=== PATIENT | male | born 1950 | race Caucasian/White ===

== ENCOUNTER 2017-11-03 14:37 | Emergency (ER) | payer OTHER ==
[~2017-11-03] VITALS: Ht 180.3 cm; Wt 106.8 kg
[2017-11-03 16:16] VITALS: BP 140/76
--- OUTSIDE RECORDS SUMMARY | 2018-02-12 14:23 | XMS REPORT ---
Author Author [facility] Address Unknown Phone Unavailable Care Team Providers Care Shoder Filler Name Role Phone FATUMA, AGNES Unavailable Unavailable Payers Payer Name Policy Type Policy Number Effective Date Expiration Date Problems This patient has no known problems. Allergies, Adverse Reactions, Alerts Allergy Name Allergy Type Status Severity Reaction(s) Onset Date Inactive Date Treating Clinician Comments No Known Allergies DA Active U 2018-01-09 00:00:00 Medications This patient has no known medications. Results Test Description Test Time Test Comments Text Results Atomic Results Result Comments CLOSTRIDIUM DIFFICILE TOXIN PCR 2016-11-21 12:14:00 CLOSTRIDIUM DIFFICILE TOXIN, PCR ([address]) (test pqzg=3655) Not Detected Not Detected This qualitative real-time polymerase chain reaction assay detects the tcdB gene , encoded on the C.difficile pathogenicity locus (PaLoc). The product of tcdB, toxin B, is a cytotoxin essential for causing C.difficile-associated disease ( CDAD) and is found in virtually all toxigenic C.difficile.This assay is performed for patients suspected of having either community-acquired or nosocomial CDAD. Accordingly, only symptomatic patients should be tested and formed stools will be rejected unless ileus is present (i.e., specified when ordering). Patients may be colonized with toxigenic C.difficile strains not causing active disease; therefore, clinical correlation is needed when deciding how to manage patients with a positive test result.The assay has not been validated as a test of cure as amplifiable nucleic acid may persist after effective treatment; therefore, follow-up testing of a positive result is not recommended.BASIC METABOLIC [id number] 05:23:00* Test Item Value Reference Range Comments SODIUM (BEAKER) (test lxul=512) 142 meq/L 136-145 POTASSIUM (BEAKER) (test tqar=870) 4.4 meq/L 3.5-5.1 CHLORIDE (BEAKER) (test afid=261) 113 meq/L 98-107 CO2 (BEAKER) (test tqei=949) 19 meq/L 22-29 BLOOD UREA NITROGEN (BEAKER) (test vrsp=917) 25 mg/dL 7-21 CREATININE (BEAKER) (test jhtd=235) 0.93 mg/dL 0.57-1.25 GLUCOSE RANDOM (BEAKER) (test lvvd=600) 123 mg/dL 70-105 CALCIUM (BEAKER) (test skcj=120) 8.7 mg/dL 8.4-10.2 EGFR (BEAKER) (test wkyg=8425) 82 mL/min/1.73 sq m ESTIMATED GFR IS NOT ACCURATE CREATININE CLEARANCE IN PREDICTING GLOMERULAR FILTRATION RATE. ESTIMATED GFR IS NOT APPLICABLE FOR DIALYSIS PATIENTS. CBC W/PLT COUNT & AUTO [id number] 05:17:00* Test Item Value Reference Range Comments WHITE BLOOD CELL COUNT (BEAKER) (test bkib=069) 7.6 K/ L 4.0-10.0 RED BLOOD CELL COUNT (BEAKER) (test jsdd=511) 5.23 M/ L 4.20-5.80 HEMOGLOBIN (BEAKER) (test ubyr=513) 15.4 GM/DL 13.0-16.8 HEMATOCRIT (BEAKER) (test doeg=316) 48.0 % 40.0-50.0 MEAN CORPUSCULAR VOLUME (BEAKER) (test ciao=867) 91.7 fL 82.0-98.0 MEAN CORPUSCULAR HEMOGLOBIN (BEAKER) (test nsiv=099) 29.4 pg 27.0-33.0 MEAN CORPUSCULAR HEMOGLOBIN CONC (BEAKER) (test rkjw=274) 32.0 GM/DL 32.0- 36.0 RED CELL DISTRIBUTION WIDTH (BEAKER) (test liuj=126) 14.3 % 10.3-14.2 PLATELET COUNT (BEAKER) (test ovrq=040) 172 K/CU MM 150-430 MEAN PLATELET VOLUME (BEAKER) (test zrwl=493) 7.4 fL 6.5-10.5 NUCLEATED RED BLOOD CELLS (BEAKER) (test uuee=639) 0 /100 WBC 0-0 NEUTROPHILS RELATIVE PERCENT (BEAKER) (test rfhw=555) 58 % LYMPHOCYTES RELATIVE PERCENT (BEAKER) (test mcvx=049) 27 % MONOCYTES RELATIVE PERCENT (BEAKER) (test pssp=160) 10 % EOSINOPHILS RELATIVE PERCENT (BEAKER) (test upml=203) 4 % BASOPHILS RELATIVE PERCENT (BEAKER) (test acni=893) 1 % NEUTROPHILS ABSOLUTE COUNT (BEAKER) (test hqcc=191) 4.44 K/ L 1.80-8.00 LYMPHOCYTES ABSOLUTE COUNT (BEAKER) (test mkoa=081) 2.03 K/ L 1.48-4.50 MONOCYTES ABSOLUTE COUNT (BEAKER) (test zxts=483) 0.79 K/ L 0.00-1.30 EOSINOPHILS ABSOLUTE COUNT (BEAKER) (test lovz=316) 0.32 K/ L 0.00-0.50 BASOPHILS ABSOLUTE COUNT (BEAKER) (test ukuw=799) 0.04 K/ L 0.00-0.20 0.00TROPONIN [id number] 01:12:00* Test Item Value Reference Range Comments TROPONIN I (BEAKER) (test pscf=559) < ng/mL 0.00-0.03 Effective 03/30/2014: Reference Range ChangeNew: 0.00-0.03 Previous 0.00- 0.15Troponin I (TnI) levels must be interpreted in the context of the presenting symptoms and the clinical findings. Elevated TnI levels indicate myocardial damage, but are not specific for ischemic heart disease. Elevated TnI levels are seen in patients with other cardiac conditions (including myocarditis and congestive heart failure), and slight TnI elevations occur in patients with other conditions, including sepsis, renal failure, acidosis, acute neurological disease, and persistent tachyarrhythmia.BASIC METABOLIC [id number] 01:04:00* Test Item Value Reference Range Comments SODIUM (BEAKER) (test gnkt=566) 139 meq/L 136-145 POTASSIUM (BEAKER) (test fvtp=705) 4.3 meq/L 3.5-5.1 CHLORIDE (BEAKER) (test hsfe=809) 111 meq/L 98-107 CO2 (BEAKER) (test wnpj=194) 18 meq/L 22-29 BLOOD UREA NITROGEN (BEAKER) (test owgi=670) 26 mg/dL 7-21 CREATININE (BEAKER) (test ztpj=122) 1.04 mg/dL 0.57-1.25 GLUCOSE RANDOM (BEAKER) (test viho=233) 132 mg/dL 70-105 CALCIUM (BEAKER) (test nonw=157) 8.6 mg/dL 8.4-10.2 EGFR (BEAKER) (test nrwl=3343) 72 mL/min/1.73 sq m ESTIMATED GFR IS NOT ACCURATE CREATININE CLEARANCE IN PREDICTING GLOMERULAR FILTRATION RATE. ESTIMATED GFR IS NOT APPLICABLE FOR DIALYSIS PATIENTS. CBC W/PLT COUNT & AUTO [id number] 00:47:00* Test Item Value Reference Range Comments WHITE BLOOD CELL COUNT (BEAKER) (test gqmd=370) 8.6 K/ L 4.0-10.0 RED BLOOD CELL COUNT (BEAKER) (test rhbx=577) 5.26 M/ L 4.20-5.80 HEMOGLOBIN (BEAKER) (test ucvi=200) 15.6 GM/DL 13.0-16.8 HEMATOCRIT (BEAKER) (test waqj=292) 47.8 % 40.0-50.0 MEAN CORPUSCULAR VOLUME (BEAKER) (test kmhc=262) 90.7 fL 82.0-98.0 MEAN CORPUSCULAR HEMOGLOBIN (BEAKER) (test jjgz=836) 29.6 pg 27.0-33.0 MEAN CORPUSCULAR HEMOGLOBIN CONC (BEAKER) (test awli=064) 32.6 GM/DL 32.0- 36.0 RED CELL DISTRIBUTION WIDTH (BEAKER) (test fpne=152) 16.5 % 10.3-14.2 PLATELET COUNT (BEAKER) (test hdzd=444) 177 K/CU MM 150-430 MEAN PLATELET VOLUME (BEAKER) (test kizz=349) 7.6 fL 6.5-10.5 NUCLEATED RED BLOOD CELLS (BEAKER) (test qurb=971) 0 /100 WBC 0-0 NEUTROPHILS RELATIVE PERCENT (BEAKER) (test zikp=911) 60 % LYMPHOCYTES RELATIVE PERCENT (BEAKER) (test rfuj=270) 26 % MONOCYTES RELATIVE PERCENT (BEAKER) (test byxj=834) 9 % EOSINOPHILS RELATIVE PERCENT (BEAKER) (test szya=872) 4 % BASOPHILS RELATIVE PERCENT (BEAKER) (test rjiz=218) 1 % NEUTROPHILS ABSOLUTE COUNT (BEAKER) (test bhpw=566) 5.14 K/ L 1.80-8.00 LYMPHOCYTES ABSOLUTE COUNT (BEAKER) (test gcce=219) 2.24 K/ L 1.48-4.50 MONOCYTES ABSOLUTE COUNT (BEAKER) (test idef=256) 0.77 K/ L 0.00-1.30 EOSINOPHILS ABSOLUTE COUNT (BEAKER) (test avaw=379) 0.38 K/ L 0.00-0.50 BASOPHILS ABSOLUTE COUNT (BEAKER) (test ubcn=885) 0.04 K/ L 0.00-0.20 0.00POCT-GLUCOSE [id number] 21:23:00* Test Item Value Reference Range Comments POC-GLUCOSE METER (BEAKER) (test vkgh=4916) 120 mg/dL 70-110 TESTED AT [facility] [address] [facility] [address] TROPONIN [id number] 18:39:00* Test Item Value Reference Range Comments TROPONIN I (BEAKER) (test iexr=168) < ng/mL 0.00-0.03 Effective 03/30/2014: Reference Range ChangeNew: 0.00-0.03 Previous 0.00- 0.15Troponin I (TnI) levels must be interpreted in the context of the presenting symptoms and the clinical findings. Elevated TnI levels indicate myocardial damage, but are not specific for ischemic heart disease. Elevated TnI levels are seen in patients with other cardiac conditions (including myocarditis and congestive heart failure), and slight TnI elevations occur in patients with other conditions, including sepsis, renal failure, acidosis, acute neurological disease, and persistent tachyarrhythmia.URINALYSIS W/ [id number] 18:36:00* Test Item Value Reference Range Comments COLOR (BEAKER) (test okda=466) Yellow CLARITY (BEAKER) (test pyvj=633) Hazy SPECIFIC GRAVITY UA (BEAKER) (test hesm=280) 1.029 1.001-1.035 PH UA (BEAKER) (test ocju=862) 5.0 5.0-8.0 PROTEIN UA (BEAKER) (test myhl=791) Negative Negative GLUCOSE UA (BEAKER) (test wagm=847) Negative Negative KETONES UA (BEAKER) (test mxnw=451) Negative Negative BILIRUBIN UA (BEAKER) (test hkwi=199) Negative Negative BLOOD UA (BEAKER) (test ovoa=459) Negative Negative NITRITE UA (BEAKER) (test xmai=151) Negative Negative LEUKOCYTE ESTERASE UA (BEAKER) (test wnrm=133) Negative Negative UROBILINOGEN UA (BEAKER) (test tmax=271) 0.2 mg/dL 0.2-1.0 RBC UA (BEAKER) (test wkud=882) 0 /HPF WBC UA (BEAKER) (test cwdf=076) 0 /HPF URIC ACID CRYSTALS (BEAKER) (test rfrg=1163) Occasional SOURCE(BEAKER) (test qxwk=5289) Urine, Clean Catch CREATINE KINASE (CK), TOTAL AND [id number] 15:01:00* Test Item Value Reference Range Comments CREATINE KINASE TOTAL (BEAKER) (test nngz=880) 97 U/L 29-200 CREATINE KINASE-MB (BEAKER) (test xgrv=548) 4.9 ng/mL 0.0-6.6 CREATINE KINASE-MB INDEX (BEAKER) (test vwoh=868) 5.1 % Effective 03/30/2014: CK-MB Reference Range ChangeNew: 0.0-6.6 Previous: 0.0- 4.9CK-MB Reference Range:<6.7 Normal6.7-10.0 Borderline>10.0 Abnormal
--- OUTSIDE RECORDS SUMMARY | 2018-02-12 14:23 | XMS REPORT | Clinical Summary ---
Author Author [facility] Organization [facility] Address Unknown Phone Unavailable Care Team Providers Care Center Rep Name Role Phone PCP Unavailable Allergies Active Allergy Reactions Severity Noted Date Comments Shellfish Containing Other (See Comments) 06/18/2014 Allergic to shrimps Products only-gets warm feeling to face and throat Current Medications Prescription Sig. Disp. Refills Start End Date Status Date carvedilol (COREG) 25 MG Take 25 mg by mouth 2 Active tablet (two) times daily with breakfast and dinner. metFORMIN (GLUCOPHAGE) Take 2,000 mg by mouth. Active 500 MG tablet glimepiride (AMARYL) 4 MG Take 4 mg by mouth every Active tablet morning before breakfast. atorvastatin (LIPITOR) 80 Take 80 mg by mouth Active MG tablet daily. clopidogrel (PLAVIX) 75 Take 75 mg by mouth Active mg tablet daily. fenofibrate (TRICOR) 145 Take 145 mg by mouth Active MG tablet daily. losartan (COZAAR) 100 MG Take 100 mg by mouth Active tablet daily. omega-3 fatty Take by mouth. Active acids-vitamin E 1,000 mg Cap niacin 500 MG tablet Take 500 mg by mouth 11/22/19 Discontin daily with breakfast. 17 ued ciprofloxacin HCl (CIPRO) Take 1 tablet (500 mg 10 tablet 0 11/22/19 11/27/19 500 MG tablet total) by mouth every 12 17 17 (twelve) hours for 5 days. Active Problems Not on file Resolved Problems Problem Noted Date Resolved Date Chest pain 11/20/2016 11/20/2016 Encounters Date Type Specialty Care Team Description 11/20/2016 [facility] Cardiology Papa Gooden MD - Encounter 11/21/2016 after 11/02/2016 Social History Tobacco Use Types Packs/Day Years Used Date Former Smoker Alcohol Use Drinks/Week oz/Week Comments No Sex Assigned at Date Recorded Not on file Last Filed Vital Signs Vital Sign Reading Time Taken Blood Pressure 136/74 11/21/2016 12:55 PM CDT Pulse 75 11/21/2016 12:55 PM CDT Temperature 36 C (96.8 F) 11/21/2016 4:07 AM CDT Respiratory Rate 18 11/21/2016 12:55 PM CDT Oxygen Saturation 99% 11/21/2016 12:55 PM CDT Inhaled Oxygen - - Concentration Weight 108.9 kg (240 lb) 11/20/2016 12:00 PM CDT Height 155.8 cm (5' 1.32") 11/20/2016 12:00 PM CDT Body Mass Index 44.88 11/20/2016 12:00 PM CDT Plan of Treatment Not on file Results * EKG-SCANNED (12/13/2016 7:50 AM) * RHYTHM STRIP - SCAN (11/22/2016 1:41 PM) * NM myocardial perfusion SPECT, pharm(Lexiscan) (11/21/2016 12:24 PM) Specimen Performing Laboratory [place] FINAL REPORT PROCEDURE:Rest/Stress MYOCARDIAL PERFUSION SPECT with regadenoson\\XA9\\ CPT CODE:96417 INDICATION:Dyspnea on exertion and epigastric pain HISTORY:Cardiac risk factors: Diabetes, hypertension, EVA. Other cardiovascular history: No reported CAD, h/o stroke. Recent cardiac symptoms: Epigastric pain and dyspnea on exertion. Current cardiovascular-related medications: Cozaar, Norvasc, Lipitor, Coreg, Plavix, Lovenox, Tricor. PROTOCOL:10.4 mCi of Tc-99m sestamibi was injected iv at rest, and SPECT (tomographic) images were obtained. Also, 31.2 mCi of Tc-99m sestamibi was injected iv at expected peak pharmacologic effect, and gated SPECT images were obtained. PRELIMINARY STRESS TEST DATA FROM NONINVASIVE CARDIOLOGY: Pharmacologic stress was by 10-second iv infusion of 0.4 mg of regadenoson. Radiotracer was injected 30 seconds after start of stress. Heart rate was 63 beats/min at rest and 80 beats/min (51 % of MPHR) at tracer injection. BP was 124/64 mmHg at rest and 138/43 mmHg at tracer injection. Stress was stopped for predetermined endpoint. The patient experienced no symptoms; treatment was not required. Preliminary ECG evaluation revealed sinus bradycardia at rest and no ischemic changes with stress. (Final ECG interpretation and other stress and monitoring data are reported separately by Cardiology.) IMAGING FINDINGS:Study quality is good. Images obtained after rest and stress injections show normal LV activity. LV and RV volumes appear normal. Gated images obtained at rest after stress show normal LV thickening. QGS LVEF is 49%. IMPRESSION: 1. Normal study.2. Appropriate pharmacologic stress. 3. Normal myocardial perfusion.4. Low normal resting LV function. 5. Normal extracardiac tracer distribution.6. No previous [facility] study for comparison. NONINVASIVE RISK STRATIFICATION: The above findings are considered low risk (<1% annual mortality rate) based on the following criterion: - Normal or small myocardial perfusion defect at rest or with stress (JACC. 2012;59(9):857-81.) Signed: Esteban Esparza MD Report Verified Date/Time:11/21/2016 13:27:41 Reading Location: [address] Reading Room Procedure Note Interface, External Ris In - 11/21/2016 1:29 PM CDT FINAL REPORT PROCEDURE: Rest/Stress MYOCARDIAL PERFUSION SPECT with regadenoson\\XA9\\ CPT CODE: 65026 INDICATION: Dyspnea on exertion and epigastric pain HISTORY: Cardiac risk factors: Diabetes, hypertension, EVA. Other cardiovascular history: No reported CAD, h/o stroke. Recent cardiac symptoms: Epigastric pain and dyspnea on exertion. Current cardiovascular-related medications: Cozaar, Norvasc, Lipitor, Coreg, Plavix, Lovenox, Tricor. PROTOCOL: 10.4 mCi of Tc-99m sestamibi was injected iv at rest, and SPECT (tomographic) images were obtained. Also, 31.2 mCi of Tc-99m sestamibi was injected iv at expected peak pharmacologic effect, and gated SPECT images were obtained. PRELIMINARY STRESS TEST DATA FROM NONINVASIVE CARDIOLOGY: Pharmacologic stress was by 10-second iv infusion of 0.4 mg of regadenoson. Radiotracer was injected 30 seconds after start of stress. Heart rate was 63 beats/min at rest and 80 beats/min (51 % of MPHR) at tracer injection. BP was 124/64 mmHg at rest and 138/43 mmHg at tracer injection. Stress was stopped for predetermined endpoint. The patient experienced no symptoms; treatment was not required. Preliminary ECG evaluation revealed sinus bradycardia at rest and no ischemic changes with stress. (Final ECG interpretation and other stress and monitoring data are reported separately by Cardiology.) IMAGING FINDINGS: Study quality is good. Images obtained after rest and stress injections show normal LV activity. LV and RV volumes appear normal. Gated images obtained at rest after stress show normal LV thickening. QGS LVEF is 49%. IMPRESSION: 1. Normal study. 2. Appropriate pharmacologic stress. 3. Normal myocardial perfusion. 4. Low normal resting LV function. 5. Normal extracardiac tracer distribution. 6. No previous [facility] study for comparison. NONINVASIVE RISK STRATIFICATION: The above findings are considered low risk (<1% annual mortality rate) based on the following criterion: - Normal or small myocardial perfusion defect at rest or with stress (JACC. 2012;59(9):857-81.) Signed: Esteban Esparza MD Report Verified Date/Time: 11/21/2016 13:27:41 Reading Location: [address] Reading Room * Treadmill tolerance(Non-Nuclear Treadmill) (11/21/2016 10:48 AM) Specimen Performing Laboratory [place] Narrative Protocol Name Lexiscan Time In Exercise Phase 00:01:00 Max. Systolic BP 138 mmHg Max Diastolic BP 43 mmHg Max Heart Rate 80 BPM Max Predicted Heart Rate 155 BPM Reason For Termination Predetermined end point Reason for Test CORDOVA Target HR Formula (220 - Age)*100% Arrhythmias none Resting ECG sinus bradycardia ST Changes No Significant Changes Overall Impression Indeterminate due to pharmacological stress Chest Pain none HR Response To Exercise BP Response To Exercise COZAAR NORVASC LIPITOR COREG plavix Levenox TRICOR Confirmed by fellow Soila Hoyt ([id number]) on 11/21/2016 11:23:39 AM Confirmed by MD MARTELL JORGE ([id number]) on 11/23/2016 12:08:04 PM Procedure Note Interface, External Ris In - 11/23/2016 12:08 PM CDT Protocol Name Lexiscan Time In Exercise Phase 00:01:00 Max. Systolic BP 138 mmHg Max Diastolic BP 43 mmHg Max Heart Rate 80 BPM Max Predicted Heart Rate 155 BPM Reason For Termination Predetermined end point Reason for Test CORDOVA Target HR Formula (220 - Age)*100% Arrhythmias none Resting ECG sinus bradycardia ST Changes No Significant Changes Overall Impression Indeterminate due to pharmacological stress Chest Pain none HR Response To Exercise BP Response To Exercise COZAAR NORVASC LIPITOR COREG plavix Levenox TRICOR Confirmed by fellow Soila Hoyt ([id number]) on 11/21/2016 11:23:39 AM Confirmed by MD MARTELL JORGE ([id number]) on 11/23/2016 12:08:04 PM * CBC with platelet count + automated diff (11/21/2016 4:11 AM) Only the most recent of 2 results within the time period is included. Component Value Ref Range WBC 7.6 4.0 - 10.0 K/ L RBC 5.23 4.20 - 5.80 M/ L Hemoglobin 15.4 13.0 - 16.8 GM/DL Hematocrit 48.0 40.0 - 50.0 % MCV 91.7 82.0 - 98.0 fL MCH 29.4 27.0 - 33.0 pg MCHC 32.0 32.0 - 36.0 GM/DL RDW 14.3 (H) 10.3 - 14.2 % Platelets 172 150 - 430 K/CU MM MPV 7.4 6.5 - 10.5 fL nRBC 0 0 - 0 /100 WBC % Neutros 58 % % Lymphs 27 % % Monos 10 % % Eos 4 % % Baso 1 % # Neutros 4.44 1.80 - 8.00 K/ L # Lymphs 2.03 1.48 - 4.50 K/ L # Monos 0.79 0.00 - 1.30 K/ L # Eos 0.32 0.00 - 0.50 K/ L # Baso 0.04 0.00 - 0.20 K/ L Specimen Performing Laboratory Blood - Arm, Left [address] [place] [address] Narrative 0.00 * CBC with platelet count + automated diff (11/21/2016 4:11 AM) Only the most recent of 2 results within the time period is included. Specimen Performing Laboratory Blood Narrative The following orders were created for panel order CBC with platelet count + automated diff. Procedure Abnormality Status --------- - ------ CBC with platelet count ...[[id number]]AbnormalFinal result Please view results for these tests on the individual orders. * Basic metabolic panel (11/21/2016 4:11 AM) Only the most recent of 2 results within the time period is included. Component Value Ref Range Sodium 142 136 - 145 meq/L Potassium 4.4 3.5 - 5.1 meq/L Chloride 113 (H) 98 - 107 meq/L CO2 19 (L) 22 - 29 meq/L BUN 25 (H) 7 - 21 mg/dL Creatinine 0.93 0.57 - 1.25 mg/dL Glucose 123 (H) 70 - 105 mg/dL Calcium 8.7 8.4 - 10.2 mg/dL EGFR 82Comment: ESTIMATED GFR IS NOT ACCURATE mL/min/1.73 sq m CREATININE CLEARANCE IN PREDICTING GLOMERULAR FILTRATION RATE. ESTIMATED GFR IS NOT APPLICABLE FOR DIALYSIS PATIENTS. Specimen Performing Laboratory Blood - Arm, [address] [address] * Troponin I (11/21/2016 12:22 AM) Only the most recent of 2 results within the time period is included. Component Value Ref Range Troponin I <0.01 0.00 - 0.03 ng/mL Specimen Performing Laboratory Blood - Arm, [address] [address] Narrative Effective 03/30/2014: Reference Range Change New: 0.00-0.03 Previous 0.00-0.15 Troponin I (TnI) levels must be interpreted in [...] failure, acidosis, acute neurological disease, and persistent tachyarrhythmia. * POC-Glucose meter (11/20/2016 9:21 PM) Component Value Ref Range POC-Glucose Meter 120 (H)Comment: TESTED AT [address] 70 - 110 mg /dL [facility] [address] Specimen Performing Laboratory Blood [address] [address] * Clostridium difficile Toxin PCR (11/20/2016 5:58 PM) Component Value Ref Range C.Diff Toxin, PCR Not Detected Not Detected Specimen Performing Laboratory Stool - Urine, [facility] Catch [address] [place] [id number] Narrative This qualitative real-time polymerase chain reaction assay detects the tcdB gene , encoded on the C.difficile pathogenicity locus (PaLoc).The product of tcdB , toxin B, is a cytotoxin essential for causing C.difficile-associated disease ( CDAD) and is found in virtually all toxigenic C.difficile. This assay is performed for patients suspected of having either community- acquired or nosocomial CDAD.Accordingly, only symptomatic patients should be tested and formed stools will be rejected unless ileus is present (i.e., specified when ordering).Patients may be colonized with toxigenic C.difficile strains not causing active disease; therefore, clinical correlation is needed when deciding how to manage patients with a positive test result. The assay has not been validated as a test of cure as amplifiable nucleic acid may persist after effective treatment; therefore, follow-up testing of a positive result is not recommended. * Urinalysis w/Microscopic (11/20/2016 5:58 PM) Component Value Ref Range Color, UA Yellow Clarity, UA Hazy Specific [place], UA 1.029 1.001 - 1.035 pH, UA 5.0 5.0 - 8.0 Protein, UA Negative Negative Glucose, UA Negative Negative Ketones, UA Negative Negative Bilirubin, UA Negative Negative Blood, UA Negative Negative Nitrite, UA Negative Negative Leukocytes, UA Negative Negative Urobilinogen, UA 0.2 0.2 - 1.0 mg/dL RBC, UA 0 /HPF WBC, UA 0 /HPF Uric Acid Crystals Occasional Specimen Source Urine, Clean Catch Specimen Performing Laboratory Urine - Urine, [facility] [address] [place] [address] * Creatine Kinase (CK), Total and MB (11/20/2016 2:22 PM) Component Value Ref Range Total CK 97 29 - 200 U/L CK-MB 4.9 0.0 - 6.6 ng/mL MB Relative Index 5.1 % Specimen Performing Laboratory Blood [facility] [address] [place] [address] Narrative Effective 03/30/2014: CK-MB Reference Range Change New: 0.0-6.6Previous: 0.0-4.9 CK-MB Reference Range: <6.7Normal 6.7-10.0Borderline >10.0 Abnormal after 11/02/2016
== END 2017-11-03 15:56 | disposition home or self-care (01) ==
LOC: FSED 14:37
DX: R50.9 Fever, unspecified (principal); R05 Cough; J06.9 Acute upper respiratory infection, unspecified; I10 Essential (primary) hypertension; E11.9 Type 2 diabetes mellitus without complications; F32.9 Major depressive disorder, single episode, unspecified
CPT/HCPCS: 71046; 99283

== ENCOUNTER 2018-09-22 22:34 | Emergency (ER) | payer MEDICARE, OTHER ==
[~2018-09-22] VITALS: Ht 180.3 cm; Wt 113.9 kg
--- OUTSIDE RECORDS SUMMARY | 2018-09-22 22:37 | XMS REPORT | Clinical Summary ---
Author Author SEVEN [facility] Organization [facility] Address Unknown Phone Unavailable Care Team Providers Care Process Improvement Manager Name Role Phone Kirby Casillas MD PCP Unavailable Allergies Comments Active Allergy Reactions Severity Noted Date Allergic to shrimps only-gets warm feeling to face and throat Shellfish Containing Other (See 06/18/2014 Products Comments) Medications End Date Status Medication Sig Dispensed Refills Start Date Active carvedilol (COREG) 25 MG Take 25 mg by 0 tablet mouth 2 (two) times daily with breakfast and dinner. Active metFORMIN (GLUCOPHAGE) Take 2,000 mg 0 500 MG tablet by mouth. Active glimepiride (AMARYL) 4 MG Take 4 mg by 0 tablet mouth every morning before breakfast. Active atorvastatin (LIPITOR) 80 Take 80 mg by 0 MG tablet mouth daily. Active clopidogrel (PLAVIX) 75 Take 75 mg by 0 mg tablet mouth daily. Active fenofibrate (TRICOR) 145 Take 145 mg 0 MG tablet by mouth daily. Active losartan (COZAAR) 100 MG Take 100 mg 0 tablet by mouth daily. Active omega-3 fatty Take by 0 acids-vitamin E 1,000 mg mouth. Cap Active Problems Not on file Social History Date Tobacco Use Types Packs/Day Years Used Former Smoker Alcohol Use Drinks/Week oz/Week Comments No Sex Assigned at Date Recorded Not on file Industry Job Start Date Occupation Not on file Not on file Not on file Travel End Travel History Travel Start No recent travel history available. Last Filed Vital Signs Not on file Plan of Treatment Not on file Results Not on fileafter 09/21/2017 Insurance Payer Benefit Subscriber ID Type Phone Address Plan / Group C[employer] - MGD CARE CIGNA xxxxxxxxxxx HMO/POS HMO/POS/OP EN ACCESS Advance Directives For more information, please contact: [facility] [address] [place] [address] Date Inactivated Comments Code Status Date Activated 11/21/2016 4:46 PM Full Code 11/20/2016 12:50 PM This code status was determined by: Patient
[2018-09-22] MEDS ORDERED: SODIUM CHLORIDE 0.9% 1000ML 1,000 ML IV SCH (23:00)
[2018-09-22] MEDS ORDERED: ONDANSETRON HCL INJ 2MG/ML 2ML 2 MG/ML VIAL IV STA (23:00)
[2018-09-22] MEDS ORDERED: DIPHENHYDRAMINE HCL INJ 50 MG/ML VIAL IV ONE (23:00)
[2018-09-22] MEDS ORDERED: FAMOTIDINE 20 MG/2 ML VIAL IV STA (23:00)
[2018-09-22] MEDS ORDERED: METHYLPREDNISOLONE SOD SUCC 125 MG/2ML VIAL IV ONE (23:00)
[2018-09-22] MEDS ORDERED: ONDANSETRON HCL INJ 2MG/ML 2ML 2 MG/ML VIAL ONE (23:12)
[2018-09-22] MEDS ORDERED: METHYLPREDNISOLONE SOD SUCC 125 MG/2ML VIAL ONE (23:12)
[2018-09-22] MEDS ORDERED: DIPHENHYDRAMINE HCL INJ 50 MG/ML VIAL ONE (23:13)
[2018-09-22] MEDS ORDERED: FAMOTIDINE 20 MG/2 ML VIAL IV ONE (23:13)
[2018-09-24] MEDS ORDERED: CRESTOR10 MG (15:21)
[2018-09-24] MEDS ORDERED: DIOVAN80 MG PO (15:22)
[2018-09-24] MEDS ORDERED: AMLODIPINE BESY10 MG PO (15:23)
[2018-09-24] MEDS ORDERED: COREG12.5 MG (15:23)
[2018-09-24] MEDS ORDERED: GLIPIZIDE5 MG PO (15:24)
[2018-09-24] MEDS ORDERED: LYRICA75 MG (15:24)
== END 2018-09-23 00:26 | disposition home or self-care (01) ==
LOC: FSED 22:34
DX: R10.13 Epigastric pain (principal); T78.1XXA Other adverse food reactions, not elsewhere classified, initial encounter; E11.65 Type 2 diabetes mellitus with hyperglycemia; I10 Essential (primary) hypertension
CPT/HCPCS: 80048; 80076; 84484; 85025; 93005; 99284; J1200; J2405; J2930

== ENCOUNTER 2018-09-24 14:39 | Emergency (ER) | payer MEDICARE, OTHER ==
--- OUTSIDE RECORDS SUMMARY | 2018-09-24 14:41 | XMS REPORT | Clinical Summary ---
Author Author SEVEN staila technologiesSaint [facility] Organization [facility] Address Unknown Phone Unavailable Care Team Providers Care Executive Sous Chef Name Role Phone Kirby Casillas MD PCP [...] Not on file Results Not on fileafter 09/23/2017 Insurance Payer Benefit Subscriber ID Type Phone Address Plan / Group [employer] - MGD CARE CIGNA xxxxxxxxxxx HMO/POS HMO/POS/OP EN ACCESS Advance Directives For more information, please contact: [facility] [address] [place] [address] Date Inactivated Comments Code Status Date Activated 11/21/2016 4:46 PM Full Code 11/20/2016 12:50 PM This code status was determined by: Patient
[2018-09-24] MEDS ORDERED: ONDANSETRON HCL INJ 2MG/ML 2ML 2 MG/ML VIAL IV ONE (14:51)
[2018-09-24] MEDS ORDERED: SODIUM CHLORIDE 0.9% 1000ML 1,000 ML IV ONE (15:00)
[2018-09-24] MEDS ORDERED: MORPHINE SULFATE INJ 4 MG/ML INJ 1ML IV ONE (15:00)
[2018-09-24] MEDS ORDERED: ONDANSETRON HCL INJ 2MG/ML 2ML 2 MG/ML VIAL ONE ×3 (15:07→20:21)
[2018-09-24] MEDS ORDERED: CRESTOR10 MG (15:21)
[2018-09-24] MEDS ORDERED: DIOVAN80 MG PO (15:22)
[2018-09-24] MEDS ORDERED: COREG12.5 MG (15:23)
[2018-09-24] MEDS ORDERED: AMLODIPINE BESY10 MG PO (15:23)
[2018-09-24] MEDS ORDERED: LYRICA75 MG (15:24)
[2018-09-24] MEDS ORDERED: GLIPIZIDE5 MG PO (15:24)
--- NOTE | 2018-09-24 17:01 | Diagnostic Imaging Report ---
EXAM: CT Abdomen and Pelvis WITHOUT contrast INDICATION: Vomiting ^[id number] ^[id number] COMPARISON: None. TECHNIQUE: Abdomen and pelvis were scanned utilizing a multidetector helical scanner from the lung base to the pubic symphysis without administration of IV contrast. Absence of intravenous contrast decreases sensitivity for detection of focal lesions and vascular pathology. Coronal and sagittal reformations were obtained. Routine protocol was performed. Dose modulation, iterative reconstruction, and/or weight based adjustment of the mA/kV was utilized to reduce the radiation dose to as low as reasonably achievable. IV CONTRAST: None. ORAL CONTRAST: None RADIATION DOSE: Total DLP: 859.66 mGy*cm Estimated effective dose: (DLP x 0.015 x size factor) mSv COMPLICATIONS: None FINDINGS: LINES and TUBES: None. LOWER THORAX: Lung bases clear. Heart size normal. HEPATOBILIARY: Low density of hepatic parenchyma compatible with steatosis. Liver span 18.1 cm, hepatomegaly. No focal hepatic lesions. No biliary ductal dilation. GALLBLADDER: No radio-opaque stones or sludge. No wall thickening. SPLEEN: No splenomegaly. PANCREAS: No focal masses or ductal dilatation. ADRENALS: No adrenal nodules KIDNEYS/URETERS: No hydronephrosis. There is a 1.9 cm hypodensity at the anterior midportion of the left kidney, internal density of fat. No stones. GI TRACT: No abnormal distention, wall thickening, or evidence of bowel obstruction. Sigmoid diverticulosis with no CT evidence for acute diverticulitis. There is large volume of fluid seen in the stomach and there are multiple nondilated fluid-filled small bowel loops. Appendix is normal. PELVIC ORGANS/BLADDER: Urinary bladder is nondistended and appears unremarkable. No discrete abnormal mass or fluid collection in the pelvis. LYMPH NODES: No dominant lymph node mass is seen in the abdomen, retroperitoneum or pelvis. VESSELS: Unenhanced abdominal aorta is atherosclerotic with scattered calcified plaque. No aneurysm. PERITONEUM / RETROPERITONEUM: No pneumoperitoneum or ascites. BONES: No acute or suspicious bony lesions. Degenerative changes are seen in the spine. SOFT TISSUES: Superficial surrounding soft tissue unremarkable. IMPRESSION: 1. Hepatic steatosis and hepatomegaly. 2. 1.9 cm fat density left renal mass. This is not fully characterized on noncontrast imaging but may represent angiomyolipoma. Full characterization may be achieved with renal mass protocol CT or MRI. 3. Sigmoid diverticulosis with no CT evidence for acute diverticulitis. 4. Large volume of fluid in the stomach and nondilated fluid-filled small bowel loops. This may relate to gastroenteritis, ileus or recently ingested large volume of fluid. Staff: Ivis Signed by: Dr. Mikey Langston M.D. on 09/24/2018 4:58 PM
[2018-09-24] MEDS ORDERED: ONDANSETRON HCL INJ 2MG/ML 2ML 2 MG/ML VIAL IV STA (19:42)
== END 2018-09-24 21:15 | disposition other institution (70) ==
LOC: FSED 14:39
DX: R10.84 Generalized abdominal pain (principal); R11.2 Nausea with vomiting, unspecified; R19.7 Diarrhea, unspecified; K56.0 Paralytic ileus
CPT/HCPCS: 74176; 80053; 81003; 85025; J2270; J2405; J7030

== ENCOUNTER 2018-10-15 14:12 | Emergency (ER) | payer MEDICARE, OTHER ==
[~2018-10-15] VITALS: Ht 180.3 cm; Wt 113.9 kg
[~2018-10-15 14:12] MED LIST: AMLODIPINE BESY10 MG PO; COREG12.5 MG; CRESTOR10 MG; DIOVAN80 MG PO; GLIPIZIDE5 MG PO; LYRICA75 MG
--- OUTSIDE RECORDS SUMMARY | 2018-10-15 14:14 | XMS REPORT | Clinical Summary ---
Author Author SEVEN [employer] [facility] Address Unknown Phone Unavailable Care Team Providers Care Personal Counselor Name Role Phone Kirby Casillas MD PCP Unavailable Allergies Comments Active Allergy Reactions Severity Noted Date Allergic to shrimp, wallnuts, and milk Shellfish Containing Other (See 06/18/2014 Products Comments) Medications End Date Status Medication Sig Dispensed Refills Start Date Active carvedilol (COREG) 25 MG Take 25 mg by 0 tablet mouth 2 (two) times daily with breakfast and dinner. Active glimepiride (AMARYL) 4 MG Take 4 mg by 0 tablet mouth every morning before breakfast. Active clopidogrel (PLAVIX) 75 Take 75 mg by 0 mg tablet mouth daily. Active fenofibrate (TRICOR) 145 Take 145 mg 0 MG tablet by mouth daily. Active losartan (COZAAR) 100 MG Take 100 mg 0 tablet by mouth daily. Active rosuvastatin (CRESTOR) 20 Take 20 mg by 0 MG tablet mouth daily. Active amLODIPine (NORVASC) 10 Take 10 mg by 0 MG tablet mouth daily. Active desvenlafaxine succinate Take 100 mg 0 (PRISTIQ) 100 MG 24 hr by mouth tablet daily. Active gabapentin (NEURONTIN) Take 300 mg 0 300 MG capsule by mouth 3 (three) times daily. Active SITagliptin-metFORMIN Take 1 tablet 0 (JANUMET) 50-500 mg per by mouth 2 tablet (two) times daily with breakfast and dinner. Active pregabalin (LYRICA) 100 Take 100 mg 0 MG capsule by mouth 2 (two) times daily. 09/24/2018 Discontinued metFORMIN (GLUCOPHAGE) Take 2,000 mg 0 500 MG tablet by mouth. 09/24/2018 Discontinued atorvastatin (LIPITOR) 80 Take 80 mg by 0 MG tablet mouth daily. 09/24/2018 Discontinued omega-3 fatty Take by 0 acids-vitamin E 1,000 mg mouth. Cap 09/25/2018 Discontinued doxycycline (VIBRAMYCIN) Take 100 mg 0 100 MG capsule by mouth 2 (two) times daily. Active Problems Problem Noted Date Ileus 09/24/2018 Encounters Care Team Description Date Type Specialty Adelso Segovia MD Athreya, Khannan K., MD Ileus (HCC); Type 2 diabetes mellitus with complication, without long-term current use of insulin (HCC); Essential hypertension; Diarrhea, unspecified type; Nausea; Food allergy; Abnormal CT of the abdomen 09/24/2018 Hospital Cardiology - Encounter 09/25/2018 Ashlie Lee MD Emesis 09/24/2018 Telephone Gastroenterology after 10/14/2017 Social History Date Tobacco Use Types Packs/Day Years Used Former Smoker Alcohol Use Drinks/Week oz/Week Comments No Sex Assigned at Date Recorded Not on file Industry Job Start Date Occupation Not on file Not on file Not on file Travel End Travel History Travel Start No recent travel history available. Last Filed Vital Signs Time Taken Vital Sign Reading 09/25/2018 3:00 PM CDT Blood Pressure 129/59 09/25/2018 3:00 PM CDT Pulse 75 09/25/2018 3:00 PM CDT Temperature 36.1 C (96.9 F) 09/25/2018 3:00 PM CDT Respiratory Rate 17 09/25/2018 3:00 PM CDT Oxygen Saturation 95% - Inhaled Oxygen - Concentration 09/25/2018 5:00 AM CDT Weight 104.8 kg (231 lb 1.6 oz) - Height - 09/25/2018 5:00 AM CDT Body Mass Index 43.21 Plan of Treatment Not on file Procedures Comments Procedure Name Priority Date/Time Associated Diagnosis COMPLEMENT COMPONENT C4 Routine 09/25/2018 4:47 PM CDT COMPLEMENT COMPONENT C3 Routine 09/25/2018 4:47 PM CDT MISCELLANEOUS LAB ORDER Routine 09/25/2018 4:45 PM CDT MISCELLANEOUS LAB ORDER Routine 09/25/2018 4:45 PM CDT MISCELLANEOUS LAB ORDER Routine 09/25/2018 4:45 PM CDT POCT-GLUCOSE METER Routine 09/25/2018 11:39 AM CDT POCT-GLUCOSE METER Routine 09/25/2018 6:53 AM CDT CBC W/PLT COUNT & AUTO Routine 09/25/2018 DIFFERENTIAL 6:21 AM CDT CBC W/PLT COUNT & AUTO Routine 09/25/2018 DIFFERENTIAL 6:21 AM CDT MAGNESIUM Routine 09/25/2018 6:21 AM CDT BASIC METABOLIC PANEL (7) Routine 09/25/2018 6:21 AM CDT after 10/14/2017 Results * Complement Component C3 (09/25/2018 4:47 PM CDT) C3 Complement 84 82 - 193 mg/dL [facility] Specimen Blood Performing Organization Address City/[facility]/Zipcode Phone Number [phone] [place] [address] * Complement Component C4 (09/25/2018 4:47 PM CDT) C4 Complement 30 15 - 57 mg/dL [facility] Specimen Blood Performing Organization Address City/[facility] Phone Number [phone] [place] [address] * Alpha-gal (09/25/2018 4:45 PM CDT) Only the most recent of 3 results within the time period is included. Scan Result [facility] Specimen Blood Narrative Performed At Performing Organization Address City/State/Zipcode Phone Number [facility] [address] [place], [place] * POC-Glucose meter (09/25/2018 11:39 AM CDT) Only the most recent of 2 results within the time period is included. POC-Glucose Meter 141 (H)Comment: TESTED AT 70 - 110 mg/dL [facility] [address] [facility] [address] Specimen Blood Performing Organization Address City/[facility]/Zipcode Phone Number [address] [address] [facility] * CBC with platelet count + automated diff (09/25/2018 6:21 AM CDT) WBC 10.7 (H) 3.5 - 10.5 K/L [facility] RBC 5.86 4.63 - 6.08 M/L [facility] Hemoglobin 16.5 13.7 - 17.5 GM/DL [facility] Hematocrit 52.5 (H) 40.1 - 51.0 % [facility] MCV 89.6 79.0 - 92.2 fL [facility] MCH 28.2 25.7 - 32.2 pg [facility] MCHC 31.4 (L) 32.3 - 36.5 GM/DL [facility] RDW 16.0 (H) 11.6 - 14.4 % [facility] Platelets 142 (L) 150 - 450 K/CU MM [facility] MPV 9.9 9.4 - 12.4 fL [facility] nRBC 0 0 - 0 /100 WBC [facility] % Neutros 67 % [facility] % Lymphs 23 % [facility] % Monos 7 % [facility] % Eos 2 % [facility] % Baso 0 % [facility] # Neutros 7.19 (H) 1.78 - 5.38 K/L [facility] # Lymphs 2.41 1.32 - 3.57 K/L [facility] # Monos 0.76 0.30 - 0.82 K/L [facility] # Eos 0.26 0.04 - 0.54 K/L [facility] # Baso 0.03 0.01 - 0.08 K/L [facility] Immature 1 0 - 1 % [facility] Granulocytes-Relative [facility] Specimen Blood Performing Organization Address City/State/Zipcode Phone Number [facility] [address] [place] [address] [facility] * Magnesium (09/25/2018 6:21 AM CDT) Magnesium 1.8 1.6 - 2.6 mg/dL [facility] Specimen Blood Performing Organization Address City/State/Zipcode Phone Number [facility] [address] [place] [address] [facility] * Basic metabolic panel (09/25/2018 6:21 AM CDT) Sodium 138 136 - 145 meq/L [facility] Potassium 4.2 3.5 - 5.1 meq/L [facility] Chloride 106 98 - 107 meq/L [facility] CO2 23 22 - 29 meq/L [facility] BUN 24 (H) 7 - 21 mg/dL [facility] Creatinine 0.97 0.57 - 1.25 mg/dL [facility] Glucose 141 (H) 70 - 105 mg/dL [facility] Calcium 9.1 8.4 - 10.2 mg/dL [facility] EGFR 77Comment: ESTIMATED GFR IS mL/min/1.[address] [facility] NOT ACCURATE CREATININE [facility] CLEARANCE IN PREDICTING GLOMERULAR FILTRATION RATE. ESTIMATED GFR IS NOT APPLICABLE FOR DIALYSIS PATIENTS. Specimen Blood Performing Organization Address City/State/Zipcode Phone Number [facility] [address] [place] [address] [facility] after 10/14/2017 Insurance Payer Benefit Subscriber ID Type Phone Address Plan / Group MEDICARE MEDICARE A xxxxxxxxxxx Medicare B MCR SUPPLEMENT/INDIVIDUAL AETNA xxxxxxxxxx [place]ENIOR SUPPLEMENT [place] Advance Directives For more information, please contact: [address] [address] Date Inactivated Comments Code Status Date Activated 09/25/2018 7:11 PM Full Code 09/24/2018 11:45 PM This code status was determined by: Patient 11/21/2016 4:46 PM Full Code 11/20/2016 12:50 PM This code status was determined by: Patient
[2018-10-15] MEDS ORDERED: ONDANSETRON HCL INJ 2MG/ML 2ML 2 MG/ML VIAL IV ONE (14:22)
[2018-10-15] MEDS ORDERED: MECLIZINE HCL 12.5 MG TAB PO ONE (14:30)
[2018-10-15] MEDS ORDERED: SODIUM CHLORIDE 0.9% 1000ML 1,000 ML IV SCH (14:30)
[2018-10-15 15:18] LABS: BASOPHILS % 0.5 % (0.0-1.0); EOSINOPHILS # (AUTO) 0.1 (0.0-0.4); EOSINOPHILS % 1.6 % (0.0-6.0); HEMATOCRIT 60.4 % (38.2-49.6); HEMOGLOBIN 19.4 g/dL (14.0-18.0); LYMPHOCYTES # (AUTO) 0.8 (1.0-3.2); MEAN CORPUSCULAR HEMOGLOBIN 28.6 pg (28-32); MEAN CORPUSCULAR HGB CONC 32.1 g/dL (31-35); MEAN CORPUSCULAR VOLUME 89.1 fL (81-99); MONOCYTES # (AUTO) 0.5 (0.2-0.8); MONOCYTES % 6.4 % (4.4-11.3); NEUTROPHILS # (AUTO) 6.3 (2.1-6.9); NEUTROPHILS % 81.2 % (38.7-80.0); PLATELET COUNT 186 x10e3/uL (140-360); RED BLOOD COUNT 6.78 x10e6/uL (4.3-5.7); RED CELL DISTRIBUTION WIDTH 17.6 % (11.7-14.4)
[2018-10-15 15:34] LABS: ALBUMIN 4.6 g/dL (3.5-5.0); ALBUMIN/GLOBULIN RATIO 1.1 (0.8-2.0); CALCIUM 10.4 mg/dL (8.4-10.2); CREATININE, SERUM 1.31 mg/dL (0.72-1.25)
[2018-10-15 15:42] LABS: CREATINE KINASE MB 2.7 ng/mL (0-5.0)
--- NOTE | 2018-10-15 16:01 | Diagnostic Imaging Report ---
CT BRAIN WO HISTORY: Dizziness, nausea COMPARISON: None. Technique: Noncontrast axial scans were obtained from skull base to the vertex. Coronal and sagittal reconstructions obtained from the axial data. One or more of the following dose reduction techniques were used: Automated exposure control, adjustment of the mA and/or kV according to patient size, and/or utilization of iterative reconstruction technique. Beam hardening artifacts obscure some details. DISCUSSION: Scalp/Skull: Unremarkable. Brain sulci: Mildly prominent. Ventricles: Compensatory dilatation. Extra-axial spaces: No masses or fluid collections. Carotid siphon calcifications are present. Parenchyma: Mild bilateral deep white matter hypodensity is likely chronic microvascular ischemic change. Otherwise, no masses, hemorrhage, or large vascular territory acute infarct. Dural sinuses: No abnormal densities. Sellar/Suprasellar region: Intact. Skull base: Intact. Incidental findings: Right scleral band is in place. IMPRESSION: 1. No acute intracranial abnormalities. 2. Mild supratentorial chronic microvascular ischemic change. Mild generalized cerebral volume loss. Signed by: Dr. Sabino Conde M.D. on 10/15/2018 3:58 PM
[2018-10-15] MEDS ORDERED: KETOROLAC TROMETHAMINE 30 MG/ML VIAL IV ONE (16:25)
[2018-10-15] MEDS ORDERED: KETOROLAC TROMETHAMINE 30 MG/ML VIAL ONE (16:26)
--- NOTE | 2018-10-15 16:26 | NUR ---
PT STATES HE SAW NO DOCTOR, RN AND MD TO ROOM, PT REMINDED BY , PT STATES HE NOW REMEMBERS; PT STATES NEW PAIN IN ABD. PT MEDICATED PER MD ORDERS. PT KEPT CALLING MD, "JANINE AND FADI." PT GIVEN ICE CHIPS PER REQUEST WELL. PT APPEARS COMFORTABLE AND HAS CALL EDMONDS AT RAIL.
--- NOTE | 2018-10-15 18:15 | Diagnostic Imaging Report ---
EXAMINATION: CT of the abdomen and pelvis without contrast. TECHNIQUE: Helical CT images of the abdomen and pelvis were performed from the lung bases to the lesser trochanters. No intravenous contrast was given. Positive enteric contrast. Coronal and sagittal reformatted images were obtained.Dose modulation, iterative reconstruction, and/or weight based adjustment of the mA/kV was utilized to reduce the radiation dose to as low as reasonably achievable. COMPARISON: None. CLINICAL HISTORY:Abdominal pain DISCUSSION: ABSENCE OF INTRAVENOUS CONTRAST DECREASES SENSITIVITY FOR DETECTION OF FOCAL LESIONS AND VASCULAR PATHOLOGY. ABDOMEN/PELVIS: LOWER THORAX: Unremarkable. HEPATOBILIARY:Hepatic steatosis. Gallbladder normal. SPLEEN: No splenomegaly. PANCREAS: No focal masses or ductal dilatation. ADRENALS: No adrenal nodules. KIDNEYS/URETERS: 2.1 cm cyst in the anterior left kidney. No obstruction.. PELVIC ORGANS/BLADDER: The bladder is normal. PERITONEUM/RETROPERITONEUM: No free air or fluid. LYMPH NODES: No intra-abdominal,retroperitoneal, pelvic or inguinal lymphadenopathy. VESSELS: Unremarkable. GI TRACT: Extensive colonic diverticulosis. No inflammatory change. Appendix normal. BONES AND SOFT TISSUES: Multilevel spondylosis. IMPRESSION: No acute CT finding. Colonic diverticulosis without inflammatory change. Signed by: Dr. Collins Huizar M.D. on 10/15/2018 6:12 PM
== END 2018-10-15 19:16 | disposition home or self-care (01) ==
LOC: ER 14:12
DX: R10.84 Generalized abdominal pain (principal); R42 Dizziness and giddiness; R11.0 Nausea; I10 Essential (primary) hypertension; E11.9 Type 2 diabetes mellitus without complications; E78.5 Hyperlipidemia, unspecified; Z91.011 Allergy to milk products; Z91.013 Allergy to seafood; Z79.84 Long term (current) use of oral hypoglycemic drugs
CPT/HCPCS: 36415; 70450; 74176; 80053; 82550; 82553; 84484; 85025; 93005; 99284; J1885; J2405; J7030; J8597

== ENCOUNTER 2018-10-26 07:57 | Emergency (ER) | payer MEDICARE, OTHER ==
[~2018-10-26] VITALS: Ht 180.3 cm; Wt 113.9 kg
--- OUTSIDE RECORDS SUMMARY | 2018-10-26 08:00 | XMS REPORT | Clinical Summary ---
Author Author SEVEN [employer] [facility] [employer] [facility] Address Unknown Phone Unavailable Care Team Providers Care Scholastic Aptitude Test Grader Name Role Phone Kirby Casillas MD PCP [...] Lee MD Emesis 09/24/2018 Telephone Gastroenterology after 10/25/2017 Social History Date Tobacco Use Types Packs/Day [...] (7) Routine 09/25/2018 6:21 AM CDT after 10/25/2017 Results * Complement Component C3 (09/25/2018 4:47 PM CDT) C3 Complement 84 82 - 193 mg/dL [facility] Specimen Blood Performing Organization Address City/[facility]/Zipcode Phone Number [phone] [place] [address] * Complement Component C4 (09/25/2018 4:47 PM CDT) C4 Complement 30 15 - 57 mg/dL [facility] Specimen Blood Performing Organization Address City/[facility] Cent[facility] Phone Number [phone] [place] [address] * Alpha-gal (09/25/2018 4:45 PM CDT) Only the most recent of 3 results within the time period is included. Scan Result [facility] Specimen Blood Narrative Performed At Performing Organization Address City/State/Zipcode Phone Number [facility] [address] [place], [place] * POC-Glucose meter (09/25/2018 11:39 AM CDT) Only the most recent of 2 results within the time period is included. POC-Glucose Meter 141 (H)Comment: TESTED AT 70 - 110 mg/dL [facility] [address] [facility] [address] Specimen Blood Performing Organization Address City/[facility]/Zipcode Phone Number [address] [address] [facility] * CBC with platelet count + automated diff (09/25/2018 6:21 AM CDT) WBC 10.7 (H) 3.5 - 10.5 K/L [facility] RBC 5.86 4.63 - 6.08 M/L [facility] Hemoglobin 16.5 13.7 - 17.5 GM/DL [facility] Hematocrit 52.5 (H) 40.1 - 51.0 % [facility] MCV 89.6 79.0 - 92.2 fL [facility] MCH 28.2 25.7 - 32.2 pg [facility] MCHC 31.4 (L) 32.3 - 36.5 GM/DL [facility] RDW 16.0 (H) 11.6 - 14.4 % [facility] Platelets 142 (L) 150 - 450 K/CU MM [facility] MPV 9.9 9.4 - 12.4 fL [facility] nRBC 0 0 - 0 /100 WBC [facility] % Neutros 67 % [facility] % Lymphs 23 % [facility] % Monos 7 % [facility] % Eos 2 % [facility] % Baso 0 % [facility] # Neutros 7.19 (H) 1.78 - 5.38 K/L [facility] # Lymphs 2.41 1.32 - 3.57 K/L [facility] # Monos 0.76 0.30 - 0.82 K/L [facility] # Eos 0.26 0.04 - 0.54 K/L [facility] # Baso 0.03 0.01 - 0.08 K/L [facility] Immature 1 0 - 1 % [facility] Granulocytes-Relative [facility] Specimen Blood Performing Organization Address City/State/Zipcode Phone Number [facility] [address] [place] [address] [facility] * Magnesium (09/25/2018 6:21 AM CDT) Magnesium 1.8 1.6 - 2.6 mg/dL [facility] Specimen Blood Performing Organization Address City/State/Zipcode Phone Number [facility] [address] [place] [address] [facility] * Basic metabolic panel (09/25/2018 6:21 AM CDT) Sodium 138 136 - 145 meq/L [facility] Potassium 4.2 3.5 - 5.1 meq/L [facility] Chloride 106 98 - 107 meq/L [facility] CO2 23 22 - 29 meq/L [facility] BUN 24 (H) 7 - 21 mg/dL [facility] Creatinine 0.97 0.57 - 1.25 mg/dL [facility] Glucose 141 (H) 70 - 105 mg/dL [facility] Calcium 9.1 8.4 - 10.2 mg/dL [facility] EGFR 77Comment: ESTIMATED GFR IS mL/min/1.[address] [facility] NOT ACCURATE CREATININE [facility] CLEARANCE IN PREDICTING GLOMERULAR FILTRATION RATE. ESTIMATED GFR IS NOT APPLICABLE FOR DIALYSIS PATIENTS. Specimen Blood Performing Organization Address City/State/Zipcode Phone Number [facility] [address] [place] [address] [facility] after 10/25/2017 Insurance Payer Benefit Subscriber ID Type Phone Address Plan / Group MEDICARE MEDICARE A xxxxxxxxxxx Medicare B MCR SUPPLEMENT/INDIVIDUAL [employer]ET[employer] xxxxxxxxxx [place]ENIOR [place]MENT [place] Advance Directives For more information, please contact: [address] [address] Date Inactivated Comments Code Status Date Activated 09/25/2018 7:11 PM Full Code 09/24/2018 11:45 PM This code status was determined by: Patient 11/21/2016 4:46 PM Full Code 11/20/2016 12:50 PM This code status was determined by: Patient
--- NOTE | 2018-10-26 08:05 | NUR ---
On arrival to ER pt vomiting and clammy and diaphoretic and clammy. pt taken to room 3 , put into gown and in bed. pt uncooperative with EGK, telling tech to get out of room. explained to patient that we are trying to help and we needed to see what was going on. pt asking for nausea meds and pain meds. Dr Parson at bedside. pt seen in ER for same complaint several times over the last few months. Addendum: 10/26/18 at [address] Salvador
[2018-10-26] MEDS ORDERED: SODIUM CHLORIDE 0.9% 1000ML 1,000 ML ONE ×2 (08:07→09:37)
[2018-10-26] MEDS ORDERED: ONDANSETRON HCL INJ 2MG/ML 2ML 2 MG/ML VIAL ONE (08:07)
[2018-10-26] MEDS ORDERED: KETOROLAC TROMETHAMINE 30 MG/ML VIAL ONE (08:08)
[2018-10-26] MEDS ORDERED: DIPHENHYDRAMINE HCL INJ 50 MG/ML VIAL IV ONE (08:30)
[2018-10-26] MEDS ORDERED: PREDNISONE 20 MG TAB PO ONE (08:30)
--- NOTE | 2018-10-26 08:37 | NUR ---
Patient seen and examined immediately on arrival. Pt seen by me at main ED about 10 days ago. Pt hostile and aggressive at times- demanding stronger pain meds before he will go to CT scan, allow for an EKG or provide a urine sample. Pt given antiemetics, IVF, ketorolac and bentyl. Pt with multiple ED visits for same complaints.
[2018-10-26] MEDS ORDERED: DIPHENHYDRAMINE HCL INJ 50 MG/ML VIAL ONE (08:41)
[2018-10-26] MEDS ORDERED: PREDNISONE 20 MG TAB ONE (08:41)
[2018-10-26] MEDS ORDERED: IOPAMIDOL 370 MG/ML 200 ML INFUS..BTL INJ ONE (08:43)
[2018-10-26] MEDS ORDERED: SODIUM CHLORIDE 0.9% 50ML 50 ML ONE (08:43)
[2018-10-26] MEDS ORDERED: ONDANSETRON HCL INJ 2MG/ML 2ML 2 MG/ML VIAL IV ONE ×2 (08:59→09:07)
[2018-10-26] MEDS ORDERED: KETOROLAC TROMETHAMINE 30 MG/ML VIAL IV ONE (09:07)
[2018-10-26] MEDS ORDERED: SODIUM CHLORIDE 0.9% 1000ML 1,000 ML IV SCH ×2 (09:15→10:57)
--- NOTE | 2018-10-26 09:27 | NUR ---
critical Latic aicd report recieved from Ronnie in the lab. 25.[address] Salvador
[2018-10-26] MEDS ORDERED: SODIUM CHLORIDE 0.9% 1000ML 1,000 ML IV STA (09:28)
[2018-10-26] MEDS ORDERED: DICYCLOMINE HCL 20 MG/2 ML VIAL IM ONE (09:30)
[2018-10-26] MEDS ORDERED: DICYCLOMINE HCL 10 MG CAP ONE (09:36)
[2018-10-26] MEDS ORDERED: METOCLOPRAMIDE HCL 10 MG/2ML VIAL ONE (09:37)
[2018-10-26] MEDS ORDERED: METOCLOPRAMIDE HCL 10 MG/2ML VIAL IV ONE (09:45)
--- NOTE | 2018-10-26 09:50 | NUR ---
pt resting without signs of pain and vomiting.
--- NOTE | 2018-10-26 09:51 | NUR ---
no vomiting noted at this time.
--- NOTE | 2018-10-26 09:56 | Diagnostic Imaging Report ---
EXAMINATION: CT of the abdomen and pelvis with contrast. TECHNIQUE: Helical CT images of the abdomen and pelvis were performed from the lung bases to the lesser trochanters after the intravenous administration of 100 cc of Isovue 300 and the oral administration of none. Coronal and sagittal reformatted images were obtained.Dose modulation, iterative reconstruction, and/or weight based adjustment of the mA/kV was utilized to reduce the radiation dose to as low as reasonably achievable. COMPARISON: None. CLINICAL HISTORY:Abdominal pain DISCUSSION: ABDOMEN/PELVIS: LOWER THORAX:Unremarkable. HEPATOBILIARY: No focal hepatic lesions. No intra-or extrahepatic biliary ductal dilation. The gallbladder is normal. SPLEEN: No splenomegaly. PANCREAS: No focal masses or ductal dilatation. ADRENALS: No adrenal nodules. KIDNEYS/URETERS: No hydronephrosis, stones, or solid mass lesions. Simple renal cysts, largest left kidney. PELVIC ORGANS/BLADDER: The bladder is normal. PERITONEUM/RETROPERITONEUM: No free air or fluid. LYMPH NODES: No intra-abdominal, retroperitoneal, pelvic or inguinal lymphadenopathy. VESSELS: The celiac trunk,superior and inferior mesenteric and bilateral renal arteries are patent The portal, superior mesenteric and splenic veins are patent. GI TRACT: No distention or wall thickening. Colonic diverticulosis without inflammatory change. BONES AND SOFT TISSUE: No bony destructive lesions. No soft tissue abnormalities. IMPRESSION: No acute CT finding. Diverticulosis without inflammatory change. Signed by: Dr. Collins Huizar M.D. on 10/26/2018 9:52 AM
--- NOTE | 2018-10-26 09:59 | NUR ---
Pt informed of normal CT findings, requesting morphine/dilaudid for pain. Pt informed no indications for narcotics at this time. Dr. Williamson informed of pt's ER visit(s)- requested sooner f/u. Pt also encourage to f/u with GI/Dr. Williamson. Addendum: 10/26/18 at 1002 by MANUEL No episodes of emesis seen in the ED. Normal vital signs at time of D/C. Pt refused to given UA- despite multiple requests. Pt understands medical work up for abdominal pain in a diabetic pt is not complete with a UA and EKG- and there is a possibilty of missing pathology.
--- NOTE | 2018-10-26 10:30 | NUR ---
PT ASKED TO WAIT FOR THE RESULTS OF cbc REDRAW.
--- NOTE | 2018-10-26 10:57 | NUR ---
CBC RESULTS GIVEN TO DR ROACH, REQUESTED PT TO RETURN TO ROOM FOR INCREASED WBC AND DISCHARGE ORDERS CANCEALED. PT TAKE BACK TO ROOM 3 IN er
[2018-10-26] MEDS ORDERED: MORPHINE SULFATE 2 MG/ML SYR 1ML IV PRN (11:00)
[2018-10-26] MEDS ORDERED: ONDANSETRON HCL INJ 2MG/ML 2ML 2 MG/ML VIAL IV PRN (11:00)
--- NOTE | 2018-10-26 11:11 | NUR ---
Repeat CBC- showed elevation of WBC count. Pt informed, normal vital signs (afebrile, no tahcycardia or hypotension). No evidence of sepsis at this time. Pt states his "WBC alawys gets elevated when repeated after this happens". Pt states this has been going on for 4-5 years and no one can figure out why, he has been admitted in the past for WBC count elevation and he isn't worried about that. Pt does not want to be admitted- requesting to go home. Will see Dr. Williamson tomorrow afternoon.
[2018-10-26] MEDS ORDERED: MORPHINE SULFATE INJ 4 MG/ML INJ 1ML IV PRN (11:15)
--- NOTE | 2018-10-26 11:32 | NUR ---
PT DECLINED TO BE ADMITTED, STATES HIS WBC ALWAYS GOES HIGH WHEN HE IS HAVING PAIN AND VOMITING. DR ROACH AWARE. PT LEFT ER.
[2018-10-26 11:35] VITALS: BP 148/66
[2018-10-30] MEDS ORDERED: METFORMIN HCL500 MG PO (12:04)
[2018-10-30] MEDS ORDERED: MECLIZINE HCL12.5 MG PO (12:07)
[2018-10-30] MEDS ORDERED: PRISTIQ ER50 MG PO (12:07)
[2018-10-30] MEDS ORDERED: VITAMIN D250000 UNIT (12:07)
[2018-10-30] MEDS ORDERED: LANSOPRAZOLE30 MG (12:07)
[2018-10-30] MEDS ORDERED: TRULICITY (12:07)
[2018-10-30] MEDS ORDERED: DICYCLOMINE HCL10 MG (12:07)
[2018-10-30] MEDS ORDERED: GLIMEPIRIDE2 MG PO (12:07)
[2018-10-30] MEDS ORDERED: [UNRECOGNIZED DRUG - OTHER] (12:07)
[2018-10-30] MEDS ORDERED: GABAPENTIN300 MG PO (12:07)
[2018-10-30] MEDS ORDERED: CLOPIDOGREL75 MG PO (12:07)
[2018-10-30] MEDS ORDERED: ACID CONTROLLER10 MG (12:07)
[2018-10-30] MEDS ORDERED: JANUMET 50-1,01 EACH (12:07)
[2018-10-30] MEDS ORDERED: ONDANSETRON2 MG/1 ML IV (12:07)
== END 2018-10-26 11:15 | disposition home or self-care (01) ==
LOC: FSED 07:57
DX: R10.84 Generalized abdominal pain (principal); Z91.011 Allergy to milk products; Z91.013 Allergy to seafood; D72.829 Elevated white blood cell count, unspecified
CPT/HCPCS: 36415; 74177; 80053; 83605; 83690; 85025; 99284; J0500; J1200; J1885; J2270; J2405; J2765; J7030; J7512; Q9967

== ENCOUNTER → 2018-10-28 | Outpatient (CLI) | payer MEDICARE, OTHER ==
--- NOTE | 2018-10-28 13:03 | Diagnostic Imaging Report ---
Hepatobiliary Scan with Gallbladder Ejection Fraction Clinical information: Upper abdominal pain Report: Following intravenous administration of 7 millicuries of Tc-99m mebrofenin, dynamic images of the abdomen in the anterior projection were obtained through 30 minutes. Sincalide (CCK analog) 2.3 micrograms was administered intravenously over 30 minutes with additional imaging for determination of gallbladder ejection fraction. Perfusion to the liver is normal. Extraction of tracer from the blood pool by the liver parenchyma is normal. Tracer is seen promptly within the biliary tract. The gallbladder begins to fill by 6 minutes post-injection of tracer and fills adequately. Tracer is seen in the small bowel during the sincalide infusion. The gallbladder ejection fraction with administration of sincalide is 60% (normal greater than 40%). Impression: 1. Filling of the gallbladder excludes the diagnosis of acute cystic duct obstruction/acute cholecystitis. 2. Normal gallbladder ejection fraction of 60% does not support the clinical diagnosis of chronic cholecystitis/gallbladder dyskinesia. Signed by: Dr. Yuni Mike M.D. on 10/28/2018 1:00 PM
== END ==
LOC: NM 07:48
PROVIDERS: ATTEND Internal Medicine Gastroenterology
DX: R10.10 Upper abdominal pain, unspecified (principal)
CPT/HCPCS: 78227; A9537

== ENCOUNTER → 2018-11-04 | Day surgery (SDC) | payer MEDICARE, OTHER ==
[~2018-11-04] MED LIST changes: +ACID CONTROLLER10 MG; +BUPIVACAINE 0.25%/EPI 30ML SDV INJ ONE; +CEFOXITIN 1GM/ D5W 50ML 100 ML IV ONE; +CLOPIDOGREL75 MG PO; +DEXAMETHASONE SOD PHOS INJ 4 MG/ML VIAL ONE; +DICYCLOMINE HCL10 MG; +FENTANYL CITRATE/PF 100MCG/2 ML INJ ONE; +GABAPENTIN300 MG PO; +GLIMEPIRIDE2 MG PO; +GLYCOPYRROLATE INJ 1MG/ 5 ML SYR ONE; +HYDROMORPHONE 2MG/ML 2 MG/ML ML ONE; +JANUMET 50-1,01 EACH; +LANSOPRAZOLE30 MG; +LIDOCAINE HCL 2% LOCAL INJ 5 ML SDV VIAL INJ ONE; +MECLIZINE HCL12.5 MG PO; +METFORMIN HCL500 MG PO; +MIDAZOLAM HCL 2 MG/2 ML VIAL ONE; +NEOSTIGMINE 5 MG/5ML SYR ONE; +ONDANSETRON HCL INJ 2MG/ML 2ML 2 MG/ML VIAL ONE; +ONDANSETRON2 MG/1 ML IV; +PRISTIQ ER50 MG PO; +PROMETHAZINE HCL (IM) 25 MG/ML VIAL ONE; +PROPOFOL IV EMULSION 10 MG/ML 20 ML VIAL ONE; +ROCURONIUM BROMIDE 10 MG/ML 5ML VIAL ONE; +SEVOFLURANE INHAL SOLN 250 ML PEN BTL ONE; +TRULICITY; +VITAMIN D250000 UNIT; +[UNRECOGNIZED DRUG - OTHER]
--- OUTSIDE RECORDS SUMMARY | 2018-11-04 11:39 | XMS REPORT | Clinical Summary ---
Author Author [employer] [facility] Address Unknown Phone Unavailable Care Team Providers Care Rubber Down Name Role Phone Kirby Casillas MD PCP [...] Lee MD Emesis 09/24/2018 Telephone Gastroenterology after 11/03/2017 Social History Date Tobacco Use Types Packs/Day [...] Body Mass Index 43.21 Plan of Treatment Care Team Description Date Type Specialty Ashlie Lee MD [address] [id number] [phone] 11/21/2018 Hospital Encounter Ashlie Lee MD [address] [id number] COLONOSCOPY 11/21/2018 Surgery Procedures Comments Procedure Name Priority Date/Time Associated [...] (7) Routine 09/25/2018 6:21 AM CDT after 11/03/2017 Results * Complement Component C3 (09/25/2018 4:47 PM CDT) C3 Complement 84 82 - 193 mg/dL [facility] Specimen Blood Performing Organization Address [facility]/[place] [address] [phone] [address] * Complement Component C4 (09/25/2018 4:47 PM CDT) C4 Complement 30 15 - 57 mg/dL [facility] Specimen Blood Performing Organization Address [facility]/Zipcode Phone Number [address] [address] [facility] * Alpha-gal (09/25/2018 4:45 PM CDT) Only the most recent of 3 results within the time period is included. Scan Result [facility] Specimen Blood Narrative Performed At Performing Organization Address City/[facility]/Zipcode Phone Number [facility] [address] [place], [place] * POC-Glucose meter (09/25/2018 11:39 AM CDT) Only the most recent of 2 results within the time period is included. POC-Glucose Meter 141 (H)Comment: TESTED AT 70 - 110 mg/dL [facility] [address] [facility] [address] Specimen Blood Performing Organization Address City/State/Zipcode Phone Number [place] [phone] [place], [place] [phone] [facility] * CBC with platelet count + automated diff (09/25/2018 6:21 AM CDT) WBC 10.7 (H) 3.5 - 10.5 K/L [facility] RBC 5.86 4.63 - 6.08 M/L [facility] Hemoglobin 16.5 13.7 - 17.5 GM/DL [facility] Hematocrit 52.5 (H) 40.1 - 51.0 % [facility] MCV 89.6 79.0 - 92.2 fL [facility] MCH 28.2 25.7 - 32.2 pg [facility] MCHC 31.4 (L) 32.3 - 36.5 GM/DL [facility] RDW 16.0 (H) 11.6 - 14.4 % [facility] Platelets 142 (L) 150 - 450 K/CU MM [facility] MPV 9.9 9.4 - 12.4 fL [facility] nRBC 0 0 - 0 /100 WBC [facility] % Neutros 67 % [facility] % Lymphs 23 % [facility] % Monos 7 % [facility] % Eos 2 % [facility] % Baso 0 % [facility] # Neutros 7.19 (H) 1.78 - 5.38 K/L [facility] # Lymphs 2.41 1.32 - 3.57 K/L [facility] # Monos 0.76 0.30 - 0.82 K/L [facility] # Eos 0.26 0.04 - 0.54 K/L [facility] # Baso 0.03 0.01 - 0.08 K/L [facility] Immature 1 0 - 1 % [facility] Granulocytes-[facility] Specimen Blood Performing Organization Address City/State/[place] [address] [phone] * Magnesium (09/25/2018 6:21 AM CDT) Magnesium 1.8 1.6 - 2.6 mg/dL [facility] Specimen Blood Performing Organization Address City/State/Zipcode Phone Number [address] [address] [phone] * Basic metabolic panel (09/25/2018 6:21 AM CDT) Sodium 138 136 - 145 meq/L [facility] Potassium 4.2 3.5 - 5.1 meq/L [facility] Chloride 106 98 - 107 meq/L [facility] CO2 23 22 - 29 meq/L [facility] BUN 24 (H) 7 - 21 mg/dL [facility] Creatinine 0.97 0.57 - 1.25 mg/dL [facility] Glucose 141 (H) 70 - 105 mg/dL [facility] Calcium 9.1 8.4 - 10.2 mg/dL [facility] EGFR 77Comment: ESTIMATED GFR IS mL/min/1.73 sq m [facility] NOT ACCURATE CREATININE [facility] CLEARANCE IN PREDICTING GLOMERULAR FILTRATION RATE. ESTIMATED GFR IS NOT APPLICABLE FOR DIALYSIS PATIENTS. Specimen Blood Performing Organization Address City/State/Zipcode Phone Number [facility] [address] [place], [place] [phone] [facility] after 11/03/2017 Insurance Payer Benefit Subscriber ID Type Phone Address Plan / Group MEDICARE MEDICARE A xxxxxxxxxxx Medicare B MCR SUPPLEMENT/INDIVIDUAL AETNA xxxxxxxxxx SENIOR SUPPLEMENT [place] Advance Directives For more information, please contact: [facility] [address] [place] [address] Date Inactivated Comments Code Status Date Activated 09/25/2018 7:11 PM Full Code 09/24/2018 11:45 PM This code status was determined by: Patient 11/21/2016 4:46 PM Full Code 11/20/2016 12:50 PM This code status was determined by: Patient
[2018-11-04 16:30] VITALS: BP 120/81
--- NOTE | 2018-11-05 03:56 | Operative Report ---
DATE OF PROCEDURE: 11/04/2018 SURGEON: Dereck Ramon MD PREOPERATIVE DIAGNOSIS: Cholecystitis. POSTOPERATIVE DIAGNOSIS: Cholecystitis. OPERATIVE PROCEDURE: Laparoscopic cholecystectomy. NURSE PRN: None. ANESTHESIA: General endotracheal. INDICATIONS FOR SURGERY: A 68-year-old male with history of recurrent epigastric pain associated with eating. HIDA scan shows poor contraction of the gallbladder suggestive of chronic cholecystitis. He has consented for laparoscopic cholecystectomy. Attendant risks discussed. PROCEDURE FINDING: Chronic cholecystitis. DESCRIPTION OF PROCEDURE: The patient was brought to the OR, intubated. The abdomen was prepped and draped in sterile fashion. A supraumbilical incision is made and a 10 mm port inserted. Insufflation then began under direct vision, the port sites placed in the midepigastric and the right upper quadrant. The fundus of the gallbladder retracted in cephalad direction. We then retracted the lateral neck of the gallbladder laterally with blunt sharp dissection, we isolated the cystic artery triple, clipped, and divided. The cystic duct was dissected down to the junction of common bile duct, where the cystic duct is triple clipped 1 cm away from the junction and the cystic duct divided between clips. The gallbladder detached from the liver with cautery and taken out through umbilical port site. Operative field was irrigated. Hemostasis achieved. All ports were removed under direct vision. Fascia closure with 0 Vicryl. Skin was closed with subcuticular stitch. The patient was extubated, transported to recovery room. ESTIMATED BLOOD LOSS: 10 mL. Dereck Ramon MD DNL/MODL /[id number]
== END | disposition home or self-care (01) ==
LOC: OR 11:35
PROVIDERS: ATTEND Surgery
DX: K81.1 Chronic cholecystitis (principal); Z86.73 Personal history of transient ischemic attack (TIA), and cerebral infarction without residual deficits; F32.9 Major depressive disorder, single episode, unspecified; E11.9 Type 2 diabetes mellitus without complications; Z79.84 Long term (current) use of oral hypoglycemic drugs; E78.00 Pure hypercholesterolemia, unspecified; R10.13 Epigastric pain; Z88.8 Allergy status to other drugs, medicaments and biological substances; Z91.011 Allergy to milk products; Z91.013 Allergy to seafood
CPT/HCPCS: 36415; 47562; 82948; 88304; J1100; J1170; J2001; J2250; J2405; J2550; J2704; J3490; J3010

== ENCOUNTER → 2019-03-05 | Outpatient (CLI) | payer MEDICARE, OTHER ==
[~2019-03-05] MED LIST changes: -BUPIVACAINE 0.25%/EPI 30ML SDV INJ ONE; -CEFOXITIN 1GM/ D5W 50ML 100 ML IV ONE; -DEXAMETHASONE SOD PHOS INJ 4 MG/ML VIAL ONE; -FENTANYL CITRATE/PF 100MCG/2 ML INJ ONE; -GLYCOPYRROLATE INJ 1MG/ 5 ML SYR ONE; -HYDROMORPHONE 2MG/ML 2 MG/ML ML ONE; -LIDOCAINE HCL 2% LOCAL INJ 5 ML SDV VIAL INJ ONE; -MIDAZOLAM HCL 2 MG/2 ML VIAL ONE; -NEOSTIGMINE 5 MG/5ML SYR ONE; -ONDANSETRON HCL INJ 2MG/ML 2ML 2 MG/ML VIAL ONE; -PROMETHAZINE HCL (IM) 25 MG/ML VIAL ONE; -PROPOFOL IV EMULSION 10 MG/ML 20 ML VIAL ONE; -ROCURONIUM BROMIDE 10 MG/ML 5ML VIAL ONE; -SEVOFLURANE INHAL SOLN 250 ML PEN BTL ONE
--- NOTE | 2019-03-05 17:58 | Diagnostic Imaging Report ---
Exam: Head CT without contrast History: Closed head injury, fall Comparison studies: None Technique: Axial images were obtained from the skull base to the vertex. Coronal and sagittal images reconstructed from the axial data. Dose modulation, iterative reconstruction, and/or weight based adjustment of the mA/kV was utilized to reduce the radiation dose to as low as reasonably achievable. Radiation dose: Total DLP: 921 mGy*cm. Estimated effective dose: DLP x 0.015 Intravenous contrast: None Findings: Scalp: No abnormalities. Bones: Fractures or destructive lytic/blastic lesion. Incidental small osteoma along the outer table of the right paramedian parietal calvarium. Brain sulci: Mildly prominent. Ventricles: Mild compensatory dilatation. No hydrocephalus. Extra-axial spaces: No masses, no fluid collection. Parenchyma: Subtle hypodensity in the right frontal deep white matter is nonspecific but is most compatible with chronic small vessel ischemic changes. No masses, hemorrhage, acute or chronic vascular insults. Sellar/suprasellar region: No abnormalities. Craniocervical junction: Patent foramen magnum. No Chiari one malformation. Incidental findings: Partially imaged right scleral buckle. IMPRESSION: No acute abnormalities. Chronic findings: 1. Mild generalized parenchymal volume loss. 2. Minimal chronic microvascular ischemic changes Signed by: Dr. Dereck Ovalles M.D. on 03/05/2019 5:54 PM
== END ==
LOC: CT 16:58
PROVIDERS: ATTEND Family Medicine
DX: S00.83XA Contusion of other part of head, initial encounter (principal); W18.30XA Fall on same level, unspecified, initial encounter; Y93.H2 Activity, gardening and landscaping; Y92.007 Garden or yard of unspecified non-institutional (private) residence as the place of occurrence of the external cause
CPT/HCPCS: 70450

== ENCOUNTER → 2019-06-23 | Outpatient (CLI) | payer MEDICARE, OTHER ==
--- NOTE | 2019-06-24 07:14 | Diagnostic Imaging Report ---
EXAMINATION: CT of the face HISTORY: Headache, facial pain, frontal sinus pressure, prior trauma/fall COMPARISON: Head CT 03/05/2019 TECHNIQUE: Multidetector helical axial images were acquired through the face without contrast and were reconstructed in bone and soft tissue algorithms. Images were viewed in multiplanar format. Dose modulation, iterative reconstruction, and/or weight based adjustment of the mA/kV was utilized to reduce the radiation dose to as low as reasonably achievable. FINDINGS: Bones: Unremarkable. Facial soft tissues: Unremarkable. Paranasal sinuses and drainage pathways: Minimal mucosal inflammatory thickening along the floor of the right maxillary sinus. Otherwise the bilateral frontal, ethmoid, sphenoid and left maxillary sinuses are clear. The ostiomeatal units, fronto-nasal and spheno-ethmoidal recesses are clear. Orbits contents: Unremarkable. Incidentally noted right globe scleral band. Nasal septum: Midline. Anatomic variations: No significant anatomic variations. Dentition: No acute abnormality of the visualized teeth. Partially visualized cervical spine: Bridging anterior osteophyte at C2-C3. Fusion of the posterior elements on the left at C3-C4. IMPRESSION: Minimal, no significant mucosal thickening in the right maxillary sinus. Otherwise all the paranasal sinuses and drainage pathways are clear. Signed by: Dr. Sisi Angel M.D. on 06/24/2019 7:11 AM
== END ==
LOC: CT 11:39
PROVIDERS: ATTEND Family Medicine
DX: J34.89 Other specified disorders of nose and nasal sinuses (principal); R51 Headache; Z87.828 Personal history of other (healed) physical injury and trauma
CPT/HCPCS: 70486

== ENCOUNTER → 2020-04-26 | Outpatient (CLI) | payer MEDICARE, OTHER | LOC: CT 07:28 | PROVIDERS: ATTEND Family Medicine | DX: G44.52 New daily persistent headache (NDPH) (principal) | CPT/HCPCS: 70450 ==

== ENCOUNTER → 2021-03-22 | Day surgery (SDC) | payer MEDICARE, OTHER ==
[2021-03-21 07:57] LABS: BASOPHILS # (AUTO) 0.1 (0.0-0.1); BASOPHILS % 0.6 % (0.0-1.0); EOSINOPHILS # (AUTO) 0.3 (0.0-0.4); HEMATOCRIT 50.7 % (38.2-49.6); HEMOGLOBIN 15.6 g/dL (14.0-18.0); LYMPHOCYTES # (AUTO) 2.2 (1.0-3.2); LYMPHOCYTES % 24.4 % (18.0-39.1); MEAN CORPUSCULAR HGB CONC 30.8 g/dL (31-35); MONOCYTES # (AUTO) 0.7 (0.2-0.8); MONOCYTES % 7.5 % (4.4-11.3); NEUTROPHILS # (AUTO) 5.8 (2.1-6.9); NEUTROPHILS % 64.2 % (38.7-80.0); PLATELET COUNT 170 x10e3/uL (140-360); RED BLOOD COUNT 5.57 x10e6/uL (4.3-5.7); RED CELL DISTRIBUTION WIDTH 15.8 % (11.7-14.4)
[~2021-03-22] MED LIST changes: +FENTANYL CITRATE/PF 100MCG/2 ML INJ ONE; +GLUCAGON FOR INJ 1 MG VIAL ONE; +HYOSCYAMINE SULFATE 0.5 MG/ML INJ ONE; +LIDOCAINE HCL 2% LOCAL INJ 5 ML SDV VIAL INJ ONE; +METOCLOPRAMIDE HCL 10 MG/2ML VIAL ONE; +MIDAZOLAM HCL 2 MG/2 ML VIAL ONE; +ONDANSETRON HCL INJ 2MG/ML 2ML 2 MG/ML VIAL ONE; +POVIDONE IODINE 0.05% 0.05 % ML PO ONE; +XOPENEX0.63 MG/3 INH
[2021-03-22 08:55] VITALS: BP 109/65
== END | disposition home or self-care (01) ==
LOC: OR 07:33
PROVIDERS: ATTEND Internal Medicine Gastroenterology
DX: Z12.11 Encounter for screening for malignant neoplasm of colon (principal); K57.30 Diverticulosis of large intestine without perforation or abscess without bleeding; K64.8 Other hemorrhoids; G47.33 Obstructive sleep apnea (adult) (pediatric); E11.9 Type 2 diabetes mellitus without complications; I10 Essential (primary) hypertension; E78.5 Hyperlipidemia, unspecified; Z01.810 Encounter for preprocedural cardiovascular examination; Z01.812 Encounter for preprocedural laboratory examination; Z20.822 Contact with and (suspected) exposure to COVID-19; Z79.02 Long term (current) use of antithrombotics/antiplatelets; Z79.84 Long term (current) use of oral hypoglycemic drugs; Z68.32 Body mass index [BMI] 32.0-32.9, adult; Z86.73 Personal history of transient ischemic attack (TIA), and cerebral infarction without residual deficits; Z87.891 Personal history of nicotine dependence
CPT/HCPCS: 36415 ×2; 82948; 85025; 93005; G0121; J1610; J1980; J2001; J2250; J2405; J2765; J3010; U0002; 45378